=== PATIENT | male | born 1965 | race Caucasian/White ===

== ENCOUNTER 2020-10-03 13:30 | Emergency (ER) | payer OTHER ==
[~2020-10-03 13:30] MED LIST: MOTRIN600 MG PO; PERCOCET 10/321 EACH PO
[2020-10-03 14:30] LABS: BASOPHIL 0.3 % (0-2); EOSINOPHIL 0.6 % (0-5); HCT 50.9 % (42.0-52.0); HGB 17.5 g/dl (13.2-18.0); LYMPHOCYTE 11.4 % (15-48); MCH 32.3 pg (25.0-31.0); MCHC 34.4 g/dL (32.0-36.0); MCV 93.9 fL (78.0-100.0); MONOCYTE 6.7 % (0-12); MPV 9.8 fL (6.0-9.5); NEUTROPHIL 80.6 % (41-80); NRBC 0; PLT 275 K/uL (150-400); RBC 5.42 M/uL (4.70-6.00); RDW 11.9 % (11.5-14.0); WBC 11.6 K/uL (4.0-10.5)
[2020-10-03 15:03] LABS: ALBUMIN 3.8 g/dL (3.4-5.0); ALKALINE PHOSHATASE 81 U/L (46-116); ALT 39 U/L (16-63); AST 29 U/L (15-37); BILIRUBIN - TOTAL 1.5 mg/dL (0.2-1.0); BUN 13 mg/dL (7-18); BUN/CREAT RATIO (CALC) 16.5 RATIO; CHLORIDE 102 mmol/L (98-107); CO2 (BICARBONATE) 26 mmol/L (21-32); CREATININE 0.79 mg/dL (0.67-1.17); GLOBULIN (CALCULATION) 4.3 g/dL; GLUCOSE 112 mg/dL (74-106); POTASSIUM 3.9 mmol/L (3.5-5.1); TOTAL PROTEIN 8.1 g/dL (6.4-8.2)
[2020-10-03 17:07] LABS: BILIRUBIN 1+ mg/dL (NEGATIVE); BLOOD NEGATIVE Ery/uL (NEGATIVE); CLARITY CLEAR (CLEAR); COLOR YELLOW (YELLOW); GLUCOSE (U) NORMAL (NORMAL); LEUKOCYTES TRACE Leu/uL (NEGATIVE); NITRITE POSITIVE (NEGATIVE); PROTEIN TRACE (LOW) mg/dL (NEGATIVE); SPECIFIC GRAVITY 1.025 (1.001-1.030); UROBILINOGEN 0.2 mg/dL (0.2-1.0); pH 5.5 (5.0-9.0)
[2020-10-03 17:14] LABS: AMPHETAMINES NEGATIVE (NEGATIVE); BACTERIA 1+; BARBITURATES NEGATIVE (NEGATIVE); ECSTASY (MDMA) NEGATIVE (NEGATIVE); MARIJUANA (THC) POSITIVE (NEGATIVE); METHADONE NEGATIVE (NEGATIVE); MUCOUS MODERATE; OPIATES NEGATIVE (NEGATIVE); OXYCODONE NEGATIVE (NEGATIVE)
[2020-10-03] MEDS ORDERED: PROZAC40 MG PO (21:05)
[2020-10-03] MEDS ORDERED: VIIBRYD10 MG PO (21:05)
[2020-10-03] MEDS ORDERED: DICLOFENAC SODI75 MG PO (21:05)
== END 2020-10-03 21:41 | disposition home or self-care (01) ==
LOC: FER 13:30
PROVIDERS: Emergency Medicine
DX: F32.9 Major depressive disorder, single episode, unspecified (principal); F41.9 Anxiety disorder, unspecified; F17.290 Nicotine dependence, other tobacco product, uncomplicated; Z79.899 Other long term (current) drug therapy; Z20.822 Contact with and (suspected) exposure to COVID-19
CPT/HCPCS: 36415; 80053; 80305; 81001; 85025; 99285; G0480; U0002